=== PATIENT | female | born 1995 | race Caucasian/White ===

== ENCOUNTER 2016-04-28 20:16 | Emergency (ER) | payer BC ==
[2016-04-28 20:52] VITALS: BP 116/56
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
[2016-04-28] MEDS ORDERED: Acetaminop/Codeine 30 MG TAB* 1 TAB (300 MG/30 MG) PO ONE (22:00)
== END 2016-04-28 22:21 | disposition home or self-care (01) ==
LOC: UCEAST 20:16
DX: T23.151A Burn of first degree of right palm, initial encounter (principal); X15.8XXA Contact with other hot household appliances, initial encounter
CPT/HCPCS: 99212; A9270-GY; G0463